=== PATIENT | male | born 1985 | race Caucasian/White ===

== ENCOUNTER 2018-08-13 11:44 | Emergency (ER) | payer OTHER ==
[2018-08-13] MEDS ORDERED: EMS LR(*) 1000 ML BAG 1,000 ML IV ONE (11:50)
--- NOTE | 2018-08-13 11:54 | EKG ---
[place] [facility] [place] NAME: NESTOR CHRISTIANSON : [id number] MR: [id number] V: [id number] EXAM DATE: ORDERING PHYSICIAN: KASIA LOZANO TECHNOLOGIST: REINIER Joseph Reason : CP Blood Pressure : / mmHG Vent. Rate : 062 BPM Atrial Rate : 062 BPM P-R Int : 184 ms QRS Dur : 092 ms QT Int : 388 ms P-R-T Axes : 041 -05 012 degrees QTc Int : 393 ms Normal sinus rhythm Normal ECG No previous ECGs available Confirmed by Gelacoi Munroe ([id number]) on 08/13/2018 7:38:26 PM Referred By: Confirmed By:Gelacio Martinez
[2018-08-13 12:02] LABS: PLATELET COUNT, AUTOMATED 195 K/uL (150-450)
[2018-08-13] MEDS ORDERED: MAG HYD/AL HYD/SIMETH 30ML UDC PO ONE (12:05)
[2018-08-13] MEDS ORDERED: LIDOCAINE 2% VISC SLN 15ML UDC PO ONE (12:05)
--- NOTE | 2018-08-13 12:35 | RADIOLOGY IMAGING REPORT ---
[place] [facility] [place] NAME: Magnus Blas : 1985 MR: [id number] V: [id number] EXAM DATE: ORDERING PHYSICIAN: KASIA LOZANO TECHNOLOGIST: Location: [facility] Patient: Magnus Blas : 1985 Visit/Account:[id number] Date of Sevice: 08/13/2018 EXAMINATION: Portable AP Chest 08/13/2018 12:01 PM HISTORY: chest pain COMPARISON: None FINDINGS: Cardiomediastinal contours: Normal Lungs and pleura: Normal Bones/soft tissues: Normal Cardiac leads are present. IMPRESSION: Unremarkable portable chest. Report Dictated By: Gerson Masters MD at 08/13/2018 12:29 PM Report E-Signed By: Gerson Masters MD at 08/13/2018 12:30 PM WSN:[id number]
--- NOTE | 2018-08-13 12:51 | ER Report ---
History and Physical Time Seen By MD: 11:51 Hx. of Stated Complaint: PT REPORTS CHEST PAIN THAT STARTED 1000 AT REST, NO HX OF CARDIAC ISSUES HPI/ROS CHIEF COMPLAINT: Chest pain HISTORY OF PRESENT ILLNESS: 33-year-old male presents with chest pain that began at approximately 10 AM. Patient stated that he had finished eating a pizza without incident. He laid down on a couch to watch TV. 20 minutes later, he noted sudden sharp and pressure-like chest pain at the lower sternum. Pain did not radiate. It felt like it went toward his back but did not go completely through to the back. Pain went away after minute as patient was standing up and walking around. However, it returned and has since returned multiple times. Pain was initially no more than 4 minutes of time, however he notes that he currently has 2 out of 10 pain with the current episode present for approximately one hour. Patient has never had symptoms like this previously. He has not had exertional pain. He does not have dyspnea. He denies nausea, vomiting, sweating. He has had no recent travel. He has had no leg swelling. There is no family history of DVT or PE. There is no family cardiac history to young age. Patient is treated for cholesterol and does have a diagnosis of hypertension though has not been taking his lisinopril for the past 3 months. He denies tobacco, alcohol, drug use. He has had no recent coughs, colds, illness. REVIEW OF SYSTEMS: Constitutional: No fever, no chills. Eyes: No discharge. ENT: No sore throat. Cardiovascular: above Respiratory: No cough, no shortness of breath. Gastrointestinal: No abdominal pain, no vomiting. Genitourinary: no dysuria Musculoskeletal: No back pain. Skin: No rashes. Neurological: No headache. Remainder of the 14 system rev: Yes Allergies: Coded Allergies: No Known Drug Allergies (Unverified , 08/13/18) Home Meds Reported Medications Atorvastatin Calcium (LIPITOR) 10 Mg Tablet, 1 TAB PO QDAY, TAB 08/13/18 Reviewed Nurses Notes: Yes Constitutional Vital Sign - Last 24 Hours 08/13/18 08/13/18 08/13/18 08/13/18 11:44 11:45 12:00 12:15 Temp 98.2 Pulse 75 72 58 69 Resp 18 37 13 8 B/P (MAP) 128/70 132/70 (90) Pulse Ox 90 90 91 89 O2 Delivery Room Air 08/13/18 08/13/18 08/13/18 08/13/18 12:30 12:45 13:00 13:15 Pulse 70 59 64 59 Resp 19 22 24 10 B/P (MAP) 119/65 (83) 124/74 (91) Pulse Ox 88 91 89 90 08/13/18 08/13/18 08/13/18 08/13/18 13:30 13:45 14:00 14:15 Pulse 64 60 65 61 Resp 17 27 8 19 B/P (MAP) 122/62 (82) 134/79 (97) Pulse Ox 91 93 92 92 08/13/18 08/13/18 08/13/18 08/13/18 14:30 14:45 15:00 15:15 Pulse 61 71 66 63 Resp 25 9 16 11 B/P (MAP) 136/72 (93) 144/65 (91) Pulse Ox 93 92 92 93 08/13/18 08/13/18 15:30 15:45 Pulse 65 64 Resp 5 13 B/P (MAP) 141/76 (97) Pulse Ox 92 93 Intake and Output 08/13/18 08/13/18 08/14/18 15:00 23:00 07:00 Intake Total 1000 ml Balance 1000 ml Physical Exam General Appearance: The patient is alert, has no immediate need for airway protection and no signs of toxicity. Eyes: Pupils equal and round no pallor or injection. ENT, Mouth: Mucous membranes are moist. Respiratory: There are no retractions, lungs are clear to auscultation. Cardiovascular: Regular rate and rhythm. no m/r/g. No carotid bruits. Gastrointestinal: Abdomen is soft and non tender, no masses, bowel sounds normal. Neurological: alert, oriented, moves all ext Skin: Warm and dry, no rashes. Musculoskeletal: Neck is supple non tender. Extremities are nontender, nonswollen and have full range of motion. DIFFERENTIAL DIAGNOSIS: After history and physical exam differential diagnosis was considered for chest pain including but not limited to myocardial ischemia, aortic dissection, pericarditis pulmonary embolus, chest wall pain, pleural inflammation and pulmonary infectious causes. Medical Decision Making Data Points Result Diagram: 08/13/18 1128 08/13/18 1128 Laboratory Hematology Test 08/13/18 00:00 08/13/18 11:28 08/13/18 14:17 D-Dimer Quantitative (PE/DVT) 0.32 ug/ml (0-0.50) Lipase 98 U/L (23-300) Red Blood Count 6.01 M/uL (4.00-5.60) Mean Corpuscular Volume 83.9 fL (80.0-96.0) Mean Corpuscular Hemoglobin 28.8 pg (26.0-33.0) Mean Corpuscular Hemoglobin Concent 34.3 g/dL (32.0-36.0) Red Cell Distribution Width 13.9 % (11.5-14.5) Mean Platelet Volume 9.2 fL (7.2-11.1) Neutrophils (%) (Auto) 58.1 % (39.4-72.5) Lymphocytes (%) (Auto) 33.5 % (17.6-49.6) Monocytes (%) (Auto) 6.7 % (4.1-12.4) Eosinophils (%) (Auto) 1.4 % (0.4-6.7) Basophils (%) (Auto) 0.3 % (0.3-1.4) Nucleated RBC Relative Count (auto) 0.5 /100WBC Neutrophils # (Auto) 4.8 K/uL (2.0-7.4) Lymphocytes # (Auto) 2.8 K/uL (1.3-3.6) Monocytes # (Auto) 0.6 K/uL (0.3-1.0) Eosinophils # (Auto) 0.1 K/uL (0.0-0.5) Basophils # (Auto) 0.0 K/uL (0.0-0.1) Nucleated RBC Absolute Count (auto) 0.05 K/uL Sodium Level 143 mmol/L (137-145) Potassium Level 3.7 mmol/L (3.5-5.0) Chloride Level 108 mmol/L (98-107) Carbon Dioxide Level 23 mmol/L (22-30) Blood Urea Nitrogen 12 mg/dl (9-21) Creatinine 1.10 mg/dl (0.66-1.25) Glomerular Filtration Rate Calc > 60.0 Random Glucose 67 mg/dl (75-110) Calcium Level 10.2 mg/dl (8.4-10.2) Total Bilirubin 0.6 mg/dl (0.2-1.3) Aspartate Amino Transf (AST/SGOT) 43 U/L (0-35) Alanine Aminotransferase (ALT/SGPT) 64 U/L (0-56) Alkaline Phosphatase 64 U/L (0-126) Total Protein 7.3 g/dl (6.3-8.2) Albumin 4.9 g/dl (3.5-5.0) Troponin I < 0.012 ng/ml Chemistry Test 08/13/18 00:00 08/13/18 11:28 08/13/18 14:17 D-Dimer Quantitative (PE/DVT) 0.32 ug/ml (0-0.50) Lipase 98 U/L (23-300) White Blood Count 8.4 k/uL (4.5-11.0) Red Blood Count 6.01 M/uL (4.00-5.60) Hemoglobin 17.3 g/dL (14.0-18.0) Hematocrit 50.4 % (42.0-52.0) Mean Corpuscular Volume 83.9 fL (80.0-96.0) Mean Corpuscular Hemoglobin 28.8 pg (26.0-33.0) Mean Corpuscular Hemoglobin Concent 34.3 g/dL (32.0-36.0) Red Cell Distribution Width 13.9 % (11.5-14.5) Platelet Count 195 K/uL (150-450) Mean Platelet Volume 9.2 fL (7.2-11.1) Neutrophils (%) (Auto) 58.1 % (39.4-72.5) Lymphocytes (%) (Auto) 33.5 % (17.6-49.6) Monocytes (%) (Auto) 6.7 % (4.1-12.4) Eosinophils (%) (Auto) 1.4 % (0.4-6.7) Basophils (%) (Auto) 0.3 % (0.3-1.4) Nucleated RBC Relative Count (auto) 0.5 /100WBC Neutrophils # (Auto) 4.8 K/uL (2.0-7.4) Lymphocytes # (Auto) 2.8 K/uL (1.3-3.6) Monocytes # (Auto) 0.6 K/uL (0.3-1.0) Eosinophils # (Auto) 0.1 K/uL (0.0-0.5) Basophils # (Auto) 0.0 K/uL (0.0-0.1) Nucleated RBC Absolute Count (auto) 0.05 K/uL Glomerular Filtration Rate Calc > 60.0 Calcium Level 10.2 mg/dl (8.4-10.2) Total Bilirubin 0.6 mg/dl (0.2-1.3) Aspartate Amino Transf (AST/SGOT) 43 U/L (0-35) Alanine Aminotransferase (ALT/SGPT) 64 U/L (0-56) Alkaline Phosphatase 64 U/L (0-126) Total Protein 7.3 g/dl (6.3-8.2) Albumin 4.9 g/dl (3.5-5.0) Troponin I < 0.012 ng/ml Coagulation Test 08/13/18 00:00 D-Dimer Quantitative (PE/DVT) 0.32 ug/ml EKG/Imaging EKG Interpretation 12 lead EKG: Rhythm: Normal sinus rhythm Conroy: Normal QRS: Normal ST segments: Normal 12 lead EKG; repeat at 1435 normal and unchanged Rhythm: Normal sinus rhythm Conroy: Normal QRS: Normal ST segments: Normal Monitor Interpretation: Normal Sinus Rhythm ED Course/Re-evaluation ED Course 33 y/o m presents with epigastric/lower sternal chest pain that began after eating, lying down. Given location, ED eval for low pretest probability for acs, pe, ptx, pneumonia, or other emergnet etiology. EKG x [address] elevations/depressions, HEART < 4, nl rpt ekg, enzymes, cxr without findings concerning for aortic dissection, dimer neg, no e/o ptx, pneumonia, or other emergent etiology. Will f/u with pcm for consideration of stress test, endoscopy, and understands SRP's. Decision to Disposition Date: Aug 13, 2018 Decision to Disposition Time: 15:51 Depart Departure Latest Vital Signs Vital Signs Date Time Temp Pulse Resp B/P (MAP) Pulse Ox O2 Delivery O2 Flow Rate FiO2 08/13/18 15:45 64 13 93 08/13/18 15:30 141/76 (97) 08/13/18 11:44 98.2 Room Air Impression: Primary Impression: Chest pain Condition: Improved Disposition: HOME OR SELF-CARE Patient Instructions: Chest Pain (ED) Additional Instructions: As we discussed, after our evaluation, it is very unlikely that you have had a heart attack. However, this does not rule out that this pain is from your heart. I recommend that you follow-up within 3 days with your primary doctor for cardiac stress testing. If this is unrevealing and your symptoms continue, you may need GI referral for endoscopy. We discussed your liver function tests which sound like they are improving, however I would like your primary doctor to reevaluate these as well. Please return immediately for pain with exertion, or any concerning symptoms. Problem Qualifiers Primary Impression: Chest pain Chest pain type: unspecified Qualified Codes: R07.9 - Chest pain, unspecified KASIA LOZANO MD Aug 13, 2018 12:50
--- NOTE | 2018-08-13 14:43 | EKG ---
FACILITY: [facility] PATIENT NAME: NESTOR CHRISTIANSON : [id number] MR: [id number] V: [id number] EXAM DATE: ORDERING PHYSICIAN: KASIA LOZANO TECHNOLOGIST: REINIER Joseph Reason : REPEAT CP Blood Pressure : / mmHG Vent. Rate : 062 BPM Atrial Rate : 062 BPM P-R Int : 180 ms QRS Dur : 092 ms QT Int : 400 ms P-R-T Axes : 030 -04 006 degrees QTc Int : 406 ms Normal sinus rhythm Normal ECG When compared with ECG of 13-AUG-2018 11:46, No significant change was found Confirmed by Gelacio Munroe ([id number]) on 08/13/2018 7:40:36 PM Referred By: MARTA Confirmed By:Gelacio Martinez
[2018-08-13 15:30] VITALS: BP 141/76
== END 2018-08-13 13:55 | disposition home or self-care (01) ==
LOC: EDUNIT# 11:44 → ER 11:45
DX: R07.9 Chest pain, unspecified (principal)
CPT/HCPCS: 71045; 83690; 84484; 85025; 85379; 93005; 99284; J7120; 82040; 82247; 82310; 82374; 82435; 82565; 82947; 84075; 84132; 84155; 84295; 84450; 84460; 84520

== ENCOUNTER → 2018-08-13 | Outpatient (CLI) | payer OTHER ==
[~2018-08-13] MED LIST: ATOR10TA24 PO
== END ==
LOC: AMB 11:13
PROVIDERS: ATTEND Nurse Practitioner
DX: R07.9 Chest pain, unspecified (principal); R06.02 Shortness of breath
CPT/HCPCS: A0425; A0427

== ENCOUNTER → 2018-12-01 | Outpatient (CLI) | payer OTHER ==
--- NOTE | 2018-12-01 18:42 | RADIOLOGY IMAGING REPORT ---
FACILITY: [facility] [place] PATIENT NAME: Magnus Blas : 1985 MR: [id number] V: [id number] EXAM DATE: ORDERING PHYSICIAN: CLARICE HERNANDEZ TECHNOLOGIST: Location: [facility] Patient: Magnus Blas : 1985 Visit/Account:[id number] Date of Sevice: 12/01/2018 TESTICULAR, GROIN ULTRASOUND HISTORY: Palpable right lump COMPARISON: None. TECHNIQUE: Ward scale, color and Duplex imaging of the scrotum was performed. Tamayo scale imaging of the inguinal canals was performed with and without Valsalva. FINDINGS: Testes: Right Testicle : The right testicle is normal is size and echotexture and measures 4.6 x 2.3 x 3 .2 cm. Prominent vessel in the right testicle is a normal variant Left Testicle : The left testicle is normal in size and echotexture and measures 5.1 x 2.3 x 3.1 cm. Symmetric and unremarkable blood flow documented by color and Duplex Doppler ultrasound. Epididymides: Right Epididymis : The right epididymal head measures 1.3 cm. Left Epididymis: The left epididymal head measures 1.1 cm. Blood flow is unremarkable in each epididymis by color Doppler ultrasound. Hydrocele: None. Varicocele: Bilateral varicoceles are noted Imaging of the inguinal canals demonstrate small bilateral inguinal hernias greater on the right. Dur ing Valsalva a small amount of bowel herniates into the inguinal canals and then reduces. IMPRESSION: 1. Normal testicles. 2. Small bilateral scrotal varicoceles. 3. Small bilateral inguinal hernias right greater than left. During Valsalva, a small amount of bowel herniates into the inguinal canals and then reduces. Report Dictated By: Shashank Andrews MD at 12/01/2018 6:28 PM Report E-Signed By: Shashank Andrews MD at 12/01/2018 6:34 PM WSN:[id number]
--- NOTE | 2018-12-01 18:42 | RADIOLOGY IMAGING REPORT ---
FACILITY: [facility] PATIENT NAME: Magnus Blas : 1985 MR: [id number] V: [id number] EXAM DATE: ORDERING PHYSICIAN: CLARICE HERNANDEZ TECHNOLOGIST: Location: [facility] Patient: Magnus Blas : 1985 Visit/Account:[id number] Date of Sevice: 12/01/2018 TESTICULAR, GROIN ULTRASOUND HISTORY: Palpable right lump COMPARISON: None. TECHNIQUE: Ward scale, color and Duplex imaging of the scrotum was performed. Tamayo scale imaging of the inguinal canals was performed with and without Valsalva. FINDINGS: Testes: Right Testicle : The right testicle is normal is size and echotexture and measures 4.6 x 2.3 x 3 .2 cm. Prominent vessel in the right testicle is a normal variant Left Testicle : The left testicle is normal in size and echotexture and measures 5.1 x 2.3 x 3.1 cm. Symmetric and unremarkable blood flow documented by color and Duplex Doppler ultrasound. Epididymides: Right Epididymis : The right epididymal head measures 1.3 cm. Left Epididymis: The left epididymal head measures 1.1 cm. Blood flow is unremarkable in each epididymis by color Doppler ultrasound. Hydrocele: None. Varicocele: Bilateral varicoceles are noted Imaging of the inguinal canals demonstrate small bilateral inguinal hernias greater on the right. Dur ing Valsalva a small amount of bowel herniates into the inguinal canals and then reduces. IMPRESSION: 1. Normal testicles. 2. Small bilateral scrotal varicoceles. 3. Small bilateral inguinal hernias right greater than left. During Valsalva, a small amount of bowel herniates into the inguinal canals and then reduces. Report Dictated By: Shashank Andrews MD at 12/01/2018 6:28 PM Report E-Signed By: Shashank Andrews MD at 12/01/2018 6:34 PM WSN:[id number]
== END ==
LOC: US 16:45
PROVIDERS: ATTEND Nurse Practitioner Family
DX: I86.1 Scrotal varices (principal); K40.20 Bilateral inguinal hernia, without obstruction or gangrene, not specified as recurrent
CPT/HCPCS: 76705; 76870